=== PATIENT | female | born 1965 | race Caucasian/White ===

== ENCOUNTER 2022-02-27 14:36 | Emergency (ER) | payer OTHER ==
[~2022-02-27] VITALS: Ht 175.3 cm; Wt 104.5 kg
[2022-02-27] MEDS ORDERED: ACETAMINOPHEN 500 MG TAB PO ONE (15:30)
[2022-02-27 15:38] VITALS: BP 141/80
[2022-02-27] MEDS ORDERED: ONDANSETRON ODT 4 MG TAB PO ONE (16:00)
[2022-02-27] MEDS ORDERED: IBUP800T27 PO (16:56)
[2022-02-27] MEDS ORDERED: METH750T22 PO (16:56)
== END 2022-02-27 17:07 | disposition home or self-care (01) ==
LOC: EDBD 14:36 → ER 14:40
DX: S83.8X2A Sprain of other specified parts of left knee, initial encounter (principal); S20.211A Contusion of right front wall of thorax, initial encounter; M11.20 Other chondrocalcinosis, unspecified site; Z88.0 Allergy status to penicillin; V43.52XA Car driver injured in collision with other type car in traffic accident, initial encounter; Y93.89 Activity, other specified; Y92.410 Unspecified street and highway as the place of occurrence of the external cause; Y99.8 Other external cause status
CPT/HCPCS: 71046; 73562; 99284; Q0162